=== PATIENT | male | born 1995 | race Hispanic/Latino ===

== ENCOUNTER 2022-06-22 12:23 | Emergency (ER) | payer BC, SELFPAY ==
[2022-06-22] MEDS ORDERED: cefTRIAXone\\ROCEPHIN 500 MG VIAL ONE (13:36)
[2022-06-22] MEDS ORDERED: Lidocaine 1% MPF 2 ML VIAL ONE (13:39)
[2022-06-22 13:45] LABS: Bilirubin Negative (Negative); Blood, Urine Negative (Negative); Clarity Clear (Clear); Glucose, Urine (Dipstick) Normal (Negative); Ketone, Urine Negative (Negative); Leukocyte 75 Leu/uL (Negative); Nitrite Negative (Negative); Protein, Urine (Dipstick) Negative (Neg-Trace); RBC/HPF None Seen HPF (0-3); Specific Gravity, Urine 1.004 (1.002-1.036); Squamous Epithelial None Seen HPF (0-3); Urobilinogen Normal mg/dL (Less than 2)
[2022-06-22 13:56] LABS: Bacteria/HPF Rare-Few HPF (None Seen)
[2022-06-23 19:34] LABS: Chlam.trachomatis by PCR,Urine DETECTED (NotDetected)
== END 2022-06-22 15:18 | disposition home or self-care (01) ==
LOC: ERS 12:23
DX: A64 Unspecified sexually transmitted disease (principal)
CPT/HCPCS: 81003; 81015; 87086; 87491; 87591; 96372; 99283; J0696

== ENCOUNTER 2022-12-10 14:24 | Emergency (ER) | payer SELFPAY | END 2022-12-10 18:14 | disposition home or self-care (01) | LOC: ERS 14:24 | DX: N63.10 Unspecified lump in the right breast, unspecified quadrant (principal) | CPT/HCPCS: 99283 ==

== ENCOUNTER 2025-01-13 16:53 | Emergency (ER) | payer SELFPAY | END 2025-01-13 17:26 | disposition home or self-care (01) | LOC: ERS 16:53 | DX: S01.81XD Laceration without foreign body of other part of head, subsequent encounter (principal); Z48.02 Encounter for removal of sutures; X58.XXXD Exposure to other specified factors, subsequent encounter ==